=== PATIENT | female | born 1975 | race American Indian/Alaskan Native ===

== ENCOUNTER 2016-12-14 09:08 | Outpatient (CLI) | payer MEDICAID ==
--- NOTE | 2016-12-14 12:58 | Mammography Report ---
BILATERAL DIGITAL SCREENING MAMMOGRAM with CAD: 12/14/16 09:08:00 CLINICAL: Routine screening. COMPARISON:None available. However, the patient apparently has a CD and report of a prior mammogram which she is going to bring in for comparison. FINDINGS: The breasts are heterogeneously dense, which may obscure small masses. A partially circumscribed right outer focal asymmetry requires comparison with the prior mammogram or additional imaging.No architectural distortion or suspicious calcifications.The left breast is negative. IMPRESSION: Right focal asymmetry requiring further evaluation. BI-RADS CATEGORY: 0 -- Additional Evaluation Required RECOMMENDATION: Recall for a right breast ultrasound unless a prior mammogram shows the asymmetry to be stable. ACR BI-RADS MAMMOGRAPHIC CODES: 0 = Needs additional imaging evaluation; 1 = Negative; 2 = Benign; 3 = Probably benign; 4 = Suspicious; 5 = Malignant; 6 = Known biopsy-proven malignancy COMMENT: 1. Dense breast tissue, i.e., adenosis, fibrocystic changes, etc., may obscure an underlying neoplasm. 2. Approximately 10% of cancers are not detected with mammography. 3. A negative mammography report should not delay biopsy if a clinically suspicious mass is present. COMMENT: Patient follow-up letters are generated via our [employer] application.
== END 2016-12-14 09:09 | disposition home or self-care (01) ==
LOC: SPVWC 09:08
PROVIDERS: ATTEND Hospitalist
DX: Z12.31 Encounter for screening mammogram for malignant neoplasm of breast (principal)
CPT/HCPCS: 77067; G0202

== ENCOUNTER 2017-01-05 08:49 | Outpatient (CLI) | payer MEDICAID ==
--- NOTE | 2017-01-05 10:54 | Ultrasound Report ---
TARGETED RIGHT BREAST ULTRASOUND: 01/05/17 CLINICAL: New right breast asymmetry. COMPARISON: 12/14/16 screening mammogram. FINDINGS: Ultrasound of the right breast demonstrated a solid oval heterogeneous hypoechoic mass at 9 o'clock 4 cm from the nipple. It measures 2.3 x 0.9 x 1.8 cm and correlates with the new mammographic asymmetry. IMPRESSION: A new 2.3 cm solid right breast mass. BI-RADS 4--Suspicious RECOMMENDATION: Ultrasound guided needle core biopsy. I discussed the findings and the recommendation for needle core biopsy with the patient at the time of the examination.
== END 2017-01-05 08:50 | disposition home or self-care (01) ==
LOC: SPVWC 08:49
PROVIDERS: ATTEND Hospitalist
DX: N63 Unspecified lump in breast (principal); N64.89 Other specified disorders of breast

== ENCOUNTER 2017-01-12 08:21 | Outpatient (CLI) | payer MEDICAID ==
--- NOTE | 2017-01-12 09:54 | Mammography Report ---
RIGHT DIGITAL DIAGNOSTIC MAMMOGRAM: 01/12/17 08:21:00 CLINICAL: For clip placement immediately status post ultrasound biopsy. COMPARISON:12/14/16 FINDINGS: A biopsy clip is now identified within the mass at 9 o'clock. IMPRESSION: Concordant clip placement status post ultrasound biopsy. BI-RADS CATEGORY: 4--Suspicious Pathology pending.
--- NOTE | 2017-01-12 09:59 | Ultrasound Report ---
ULTRASOUND GUIDED NEEDLE CORE BIOPSY RIGHT BREAST WITH CLIP PLACEMENT: 01/12/17 CLINICAL: Right breast mass. COMPARISON :01/05/17 FINDINGS: The procedure was explained to the patient and informed consent was obtained. Ultrasound demonstrated the previous described mass at 9 o'clock 4 cm from the nipple.. I marked the breast with a felt tip marker and a time out was called. The skin was prepped with Betadine and anesthetized with 1% lidocaine. Needle core biopsy was performed through a tiny dermatotomy using ultrasound guidance, 2% lidocaine with epinephrine for deep anesthesia and a 14-gauge Achieve biopsy device. Imaging demonstrated satisfactory sampling. Four cores were obtained and placed in formalin. A clip was deployed within the mass. The patient tolerated the procedure well and there were no apparent complications. Hemostasis was achieved with minimal pressure and a sterile dressing was applied. A two view mammogram demonstrated satisfactory placement of the clip. She left the department in good condition and was given instructions for wound care and followup. IMPRESSION: Uncomplicated ultrasound guided needle core biopsy with clip placement right breast.
== END 2017-01-12 08:22 | disposition home or self-care (01) ==
LOC: SPVWC 08:21
PROVIDERS: ATTEND Hospitalist
DX: N63 Unspecified lump in breast (principal)
CPT/HCPCS: 19083; 88305; A4648; G0206

== ENCOUNTER 2018-01-13 13:49 | Outpatient (CLI) | payer BC, MEDICAID ==
--- NOTE | 2018-01-18 12:53 | Mammography Report ---
BILATERAL MAMMOGRAM: FINDINGS: There are scattered fibroglandular densities (approximately 25%-50% glandular). No mass, distortion, suspicious calcification, or skin change is seen. There is a biopsy marker in a nodule located in the lateral right breast. With the exception of the marker the findings are unchanged compared to December 14, 2016. CAD was utilized. IMPRESSION: Negative mammogram. There is no mammographic evidence of malignancy. RECOMMENDATION: Follow-up per ACS guidelines. BI-RADS CATEGORY: 1 = Negative ACR BI-RADS MAMMOGRAPHIC CODES: 0 = Needs additional imaging evaluation; 1 = Negative; 2 = Benign; 3 = Probably benign; 4 = Suspicious; 5 = Malignant; 6 = Known biopsy-proven malignancy COMMENT: 1. Dense breast tissue, i.e., adenosis, fibrocystic changes, etc., may obscure an underlying neoplasm. 2. Approximately 10% of cancers are not detected with mammography. 3. A negative mammography report should not delay biopsy if a clinically suspicious mass is present. COMMENT: Patient follow-up letters are generated in [email or web address].
== END 2018-01-13 13:50 | disposition home or self-care (01) ==
LOC: SPVWC 13:49
PROVIDERS: ATTEND Hospitalist
DX: Z12.31 Encounter for screening mammogram for malignant neoplasm of breast (principal)
CPT/HCPCS: 77067

== ENCOUNTER 2021-11-24 11:01 | Outpatient (CLI) | payer BC ==
--- NOTE | 2021-11-25 09:35 | Mammography Report ---
DIGITAL SCREENING MAMMOGRAM WITH CAD, 11/24/2021 CLINICAL INFORMATION / INDICATION: Routine screening mammography. SCREENING MAMMO TECHNIQUE: Digital bilateral 2D mammography was obtained in the craniocaudal and mediolateral obliqu e projections. This examination was interpreted with the benefit of Computer-Aided Detection analysis . COMPARISON: 01/03/2020 and 01/13/2018 FINDINGS: Breast Density: The breasts are heterogeneously dense, which may obscure small masses. No dominant mass, suspicious calcifications, or architectural distortion in either breast. Stable nodular density with biopsy clip on the right. IMPRESSION: No mammographic evidence of malignancy. Follow up recommendation: Routine yearly BI-RADS Category 2: BENIGN. A "normal" or negative report should not discourage follow up or biopsy of a clinically significant f inding. A written summary of these findings will be mailed to the patient. The patient will be entered into a mammography reporting system which will generate a reminder letter for the patient's next appointmen t at the appropriate interval. The [employer] recommends yearly mammograms starting at age 40 and continuing as l chris as a woman is in good health. Breast MRI is recommended for women with an approximate 20-25% or greater lifetime risk of breast cancer, including women with a strong family history of breast or ova mando cancer or who have been treated for Hodgkin's disease. Signer Name: Norman Christensen MD Signed: 11/25/2021 9:30 AM Workstation Name: [id number]
== END 2021-11-24 11:02 | disposition home or self-care (01) ==
LOC: SPVWC 11:01
PROVIDERS: ATTEND Internal Medicine
DX: Z12.31 Encounter for screening mammogram for malignant neoplasm of breast (principal)
CPT/HCPCS: 77067